=== PATIENT | female | born 1935 | race Caucasian/White ===

== ENCOUNTER 2016-09-30 06:06 | Outpatient (CLI) | payer MEDICARE, BC ==
[2016-09-27 10:56] LABS: BASOPHILS 0.3 % (0.0-2.0); EOSINOPHILS 2.9 % (0-7); HEMOGLOBIN 10.9 g/dL (12-16); IMMATURE GRANULOCYTES 0.7 % (0-5); LYMPHOCYTES 23.5 % (15-50); MCH 30.1 pg (26.0-34.0); MCHC 30.3 g/dL (31.0-37.0); MCV 99.4 fL (80.0-100.0); MEAN PLATELET VOLUME 10.7 fL (7.4-10.4); MONOCYTES 7.5 % (2-11); NEUTROPHILS 65.1 % (40-80); RBC 3.62 10x6/uL (4.00-5.40); RDW 14.8 % (11.5-14.5); WBC 7.2 10x3/uL (4.8-10.8)
[2016-09-27 11:12] LABS: ANION GAP 10.7 mmol/L (8-16); CALCIUM 9.2 mg/dL (8.5-10.1); CARBON DIOXIDE 29.1 mmol/L (21.0-32.0); CREATININE - SERUM 1.7 mg/dL (0.6-1.3); POTASSIUM - SERUM 3.8 mmol/L (3.5-5.1)
[2016-09-27 11:14] LABS: PLATELET COUNT 199 10x3/uL (130-400)
[2016-09-27 11:21] LABS: APTT 28.8 SECONDS (22.8-39.4); INR 1.05 (0.85-1.17); PROTIME 13.5 SECONDS (11.6-15.0)
[~2016-09-30] VITALS: Ht 160 cm; Wt 90.3 kg
[~2016-09-30 06:06] MED LIST: AMARYL1 MG PO; AMBIEN10 MG PO; ARTIFICIAL TEAR15 ML EACH EYE; ASPIRIN 81 MG E81 MG PO; ASPIRIN81 MG PO; CLONAZEPAM0.125 MG/T PO; CLONAZEPAM1 MG/TAB PO; COUMADIN5 MG PO; COZAAR50 MG PO; CYMBALTA60 MG PO; EFFEXOR37.5 MG PO; ELIQUIS2.5 MG PO; FLUTICASONE PRO16 GM NS; FOLIC ACID1 MG PO; GLIMEPIRIDE1 MG PO; GLUCOPHAGE1000 MG PO; HYDROCODONE-APA1 TAB PO; INDERAL 40 MG T40 MG PO; JANUVIA100 MG PO; JANUVIA50 MG PO; KLONOPIN1 MG PO; LASIX20 MG PO; LASIX40 MG PO; LIPITOR40 MG PO; MAXZIDE-25 MG T1 TAB PO; METOLAZONE5 MG PO; MIRAPEX0.5 MG PO; MULTI-DAY VITAM1 TAB PO; NEURONTIN 100100 MG PO; NITROSTAT0.4 MG SL; NORCO 7.5-3251 EACH PO; PERCOCET 10/3251 TA1 PO; PLAVIX75 MG PO; POTASSIUM CHLOR8 ME1 PO; PROCRIT/EP2000 UNITS SQ; PROCRIT/EP40000 UNIT SC; PROTONIX40 MG PO; RESTASIS EYE DR30 EA EACH EYE; RESTORIL15 MG PO; ROBAXIN-750750 MG PO; SAVELLA25 MG PO; SENOKOT-S TABLE1 TAB PO; TRICOR145 MG PO; TRILIPIX45 MG PO; VITAMIN B-1000 MCG/M IM; VITAMIN B-121000 MCG IM; ZAROXOLYN5 MG PO; ZOFRAN ODT4 MG/UDTAB PO; ZOFRAN4 MG PO
[2016-09-30 07:27] VITALS: BP 100/47; Ht 160 cm; Wt 90.3 kg
--- NOTE | 2016-09-30 07:52 | NUR ---
0730 TC TO NOHEMY IN SURGERY, REPORTED PT HAS OPEN WOUND TO RIGHT SECOND DORSAL TOE, STATES SHE WILL HAVE DR LEONARD LOOK AT IT WHEN HE IS AVAILABLE.
--- NOTE | 2016-09-30 09:26 | NUR ---
0910 DR LEONARD HERE TO ROUND ON PT AND ASSESS WOUND TO PT'T RIGHT SECOND TOE. STATES WOUND NEEDS TO BE HEALED PRIOR TO SURGERY, [facility] CANCELLED FOR TODAY, PT VERBALIZES UNDERSTANDING. DR LEONARD INSTRUCTED PT TO GO BY HIS OFFICE, THEY WILL HAVE AN OFFLOADING SHOE THERE FOR PT, PT VERBALIZES UNDERSTANDING AND STATES WILL PICK SHOE UP WHEN SHE LEAVES HOSP. 0920 SERVED PT WATER. PT HAS CALLED HER NEPHEW FOR RIDE HOME. IV DC'D WITH CATH INTACT. ASSISTED PT WITH DRESSING FOR DC TO HOME.
--- NOTE | 2016-09-30 10:09 | NUR ---
0931 DC INSTRUCTIONS HAVE BEEN REVIEWED AND PT VERBALIZES UNDERSTANDING. PT'S NEPHEW HERE TO PICK HER UP, STATES HE WILL TAKE HER BY DR LEONARD'S OFFICE TO HAND OUTSIDE CUTTER POST OP SHOE. PT ESCORTED TO PRIVATE AUTO VIA WC BY STAFF WITH NEPHEW DRIVING HER HOME.
== END 2016-09-30 23:59 | disposition home or self-care (01) ==
LOC: D.OPS 06:06 → D.PAN 08:30 → EDSTATUS 08:45 → D.PAN 08:45 → D.OPS 08:45
PROVIDERS: Anesthesiology
DX: M20.41 Other hammer toe(s) (acquired), right foot (principal); Z01.810 Encounter for preprocedural cardiovascular examination; Z01.811 Encounter for preprocedural respiratory examination; Z01.812 Encounter for preprocedural laboratory examination; Z53.9 Procedure and treatment not carried out, unspecified reason

== ENCOUNTER 2016-10-28 06:33 | Day surgery (SDC) | payer MEDICARE, BC ==
[2016-10-25 11:09] LABS: HEMATOCRIT 35.3 % (36.0-48.0); HEMOGLOBIN 10.7 g/dL (12-16); MCH 29.8 pg (26.0-34.0); MCHC 30.3 g/dL (31.0-37.0); MCV 98.3 fL (80.0-100.0); MEAN PLATELET VOLUME 10.7 fL (7.4-10.4); RBC 3.59 10x6/uL (4.00-5.40); RDW 15.5 % (11.5-14.5); WBC 7.3 10x3/uL (4.8-10.8)
[2016-10-25 11:16] LABS: ANION GAP 11.4 mmol/L (8-16); CALCIUM 8.6 mg/dL (8.5-10.1); CARBON DIOXIDE 29.6 mmol/L (21.0-32.0); CREATININE - SERUM 1.6 mg/dL (0.6-1.3)
[~2016-10-28] VITALS: Ht 160 cm; Wt 92.1 kg
[2016-10-28 07:20] VITALS: BP 130/67; Ht 160 cm; Wt 92.1 kg
== END 2016-10-28 11:00 | disposition home or self-care (01) ==
LOC: D.OPS 06:33 → D.PAN 08:30 → D.OPS 08:30
PROVIDERS: Anesthesiology
DX: M20.41 Other hammer toe(s) (acquired), right foot (principal); I25.10 Atherosclerotic heart disease of native coronary artery without angina pectoris; I12.9 Hypertensive chronic kidney disease with stage 1 through stage 4 chronic kidney disease, or unspecified chronic kidney disease; E11.22 Type 2 diabetes mellitus with diabetic chronic kidney disease; N18.9 Chronic kidney disease, unspecified

== ENCOUNTER 2016-11-19 10:27 | Inpatient (IN) | payer MEDICARE, BC ==
[~2016-11-19] VITALS: Ht 160 cm; Wt 88.2 kg
[2016-11-19 11:05] LABS: BASOPHILS 0.1 % (0.0-2.0); EOSINOPHILS 0.3 % (0-7); HEMATOCRIT 36.6 % (36.0-48.0); IMMATURE GRANULOCYTES 0.2 % (0-5); LYMPHOCYTES 17.2 % (15-50); MCH 29.1 pg (26.0-34.0); MCHC 30.1 g/dL (31.0-37.0); MCV 96.8 fL (80.0-100.0); MEAN PLATELET VOLUME 10.1 fL (7.4-10.4); MONOCYTES 13.8 % (2-11); NEUTROPHILS 68.4 % (40-80); RBC 3.78 10x6/uL (4.00-5.40); RDW 15.5 % (11.5-14.5); WBC 9.6 10x3/uL (4.8-10.8)
[2016-11-19 11:06] LABS: PLATELET COUNT 153 10x3/uL (130-400)
[2016-11-19 11:13] LABS: ALBUMIN 3.4 g/dL (3.4-5.0); ALKALINE PHOSPHATASE 48 U/L (46-116); ALT (SGPT) 29 U/L (10-68); BILIRUBIN - TOTAL 1.02 mg/dL (0.2-1.3); CALC OSMOLALITY 279 mosm/kg (275-300); CALCIUM 8.9 mg/dL (8.5-10.1); CARBON DIOXIDE 25.7 mmol/L (21.0-32.0); CHLORIDE - SERUM 103 mmol/L (98-107); CREATININE - SERUM 1.4 mg/dL (0.6-1.3); GLUCOSE 101 mg/dL (74-106); POTASSIUM - SERUM 4.2 mmol/L (3.5-5.1); PROTEIN - SERUM 7.1 g/dL (6.4-8.2); SODIUM 139 mmol/L (136-145); UREA NITROGEN 19 mg/dL (7-18); eGFR NON AFRICAN AMERICAN 38 mL/min (90-120)
[2016-11-19 11:20] LABS: PRO BNP 4468 pg/mL (0-450); TROPONIN-I < 0.017 ng/mL (0.000-0.060)
--- NOTE | 2016-11-19 14:00 | NUR ---
RECIEVED TO ROOM 2203 VIA STRETCHER FROM ER COMPLAINT OF PAIN TO RIGHT HIP S/P FALL WITH SUBSEQUENT FX TO FEMORAL NECK. IV SALINE LOCK NOTED TO LEFT WRIST. AWAKE AND ALERT ORINETED X 3 LUNGS CLAER BIALTERAL. BSA X 4 QUADS. BRUISING NOTED TO RIGHT UPPER ARM WILL MONITOR.
[2016-11-19] MEDS ORDERED: GABAPENTIN100 MG PO (14:02)
[2016-11-19] MEDS ORDERED: VITAMIN D250000 UNIT PO (14:04)
[2016-11-19] MEDS ORDERED: MOBIC7.5 MG PO (14:07)
--- NOTE | 2016-11-19 15:55 | NUR ---
PT NOTED TO HAVE RAPID HEART RATE OF 150 SUSTAINED STAT EKG ORDERED NOTED AFIB WITH RVR. WILL NOTIFY CARDIOLOGY
[2016-11-19 16:16] VITALS: BP 150/78; BMI 34.6
--- NOTE | 2016-11-19 16:26 | NUR ---
NEW ORDER RECIEVED TO TRANSFER TO PCU AND START CARDIZEM GTT AT 15 MG/HR AFTER 25 MG IV BOLUS. WILL CALL REPORT TO PCU NURSE AND TRANSFER.
[2016-11-19 17:32] LABS: MAGNESIUM - SERUM 2.1 mg/dL (1.8-2.4); THYROID STIMULATING HORMONE 0.76 uIU/mL (0.36-3.74)
--- NOTE | 2016-11-19 19:15 | NUR ---
INITIAL ROUNDS MADE. PT SITTING UP IN BED TALKING ON PHONE. NO NEEDS VERBALIZED AT THIS TIME.
[2016-11-19 21:03] VITALS: BP 119/42
[2016-11-20] VITALS (7 sets, daily range): BP systolic 94–139; BP diastolic 30–97; Ht 160 cm; Wt 88.2 kg
--- NOTE | 2016-11-20 03:55 | NUR ---
FISH FILLETER AT BEDSIDE FOR VS. NEEDS ADDRESSED, CALL LIGHT IN REACH. CONT TO MONITOR.
[2016-11-20 05:38] LABS: BASOPHILS 0.1 % (0.0-2.0); HEMATOCRIT 32.7 % (36.0-48.0); HEMOGLOBIN 9.8 g/dL (12-16); IMMATURE GRANULOCYTES 0.2 % (0-5); LYMPHOCYTES 14.6 % (15-50); MCH 28.7 pg (26.0-34.0); MCV 95.9 fL (80.0-100.0); MEAN PLATELET VOLUME 10.1 fL (7.4-10.4); MONOCYTES 12.8 % (2-11); NEUTROPHILS 69.3 % (40-80); PLATELET COUNT 170 10x3/uL (130-400); RBC 3.41 10x6/uL (4.00-5.40); RDW 15.5 % (11.5-14.5); WBC 8.7 10x3/uL (4.8-10.8)
[2016-11-20 05:49] LABS: ALBUMIN 2.7 g/dL (3.4-5.0); ANION GAP 12.7 mmol/L (8-16); BILIRUBIN - TOTAL 0.93 mg/dL (0.2-1.3); CALCIUM 8.2 mg/dL (8.5-10.1); CARBON DIOXIDE 26.1 mmol/L (21.0-32.0); CREATININE - SERUM 1.5 mg/dL (0.6-1.3); POTASSIUM - SERUM 3.8 mmol/L (3.5-5.1); PROTEIN - SERUM 6.5 g/dL (6.4-8.2)
--- NOTE | 2016-11-20 10:19 | NUR ---
TELEMETRY SR. RESP UL ON 02 3L [place]. DOMÍNGUEZ INTACT. CONSENTS SIGNED FOR SURGERY. WILL CONT. PLAN OF CARE.
--- NOTE | 2016-11-20 11:14 | NUR ---
SCD'S ON BILATERAL LE
--- NOTE | 2016-11-20 11:20 | NUR ---
BILATERAL SCDS ON.
--- NOTE | 2016-11-20 20:00 | NUR ---
RESTING IN BED. ALERT/ORIENTED. CHANGED OUT EMPTY CANAL DRIVER DILAUDID SYRINGE AT THIS TIME. IV TO LEFT HAND WITH DILAUDID CANAL DRIVER 00.4/10/4MG/4HOUR LOCKOUT. ALSO HAS NS AT [facility]. SR PER TELEMETRY. DOMÍNGUEZ PATENT TO BEDSIDE DRAIN BAG. WILL BE NPO FOR LEFT HIP SURGERY PER DR WISE IN THE AM. SEE SHIFT ASSESSMENT.
--- NOTE | 2016-11-20 22:49 | NUR ---
BEDTIME MEDS GIVEN. PT WATCHING TV AND ON HER COMPUTER. IVF INFUSING AT [facility].
[2016-11-21] VITALS: BP 107/50
[2016-11-21 04:00] VITALS: BP 107/59
[2016-11-21 06:35] LABS: BASOPHILS 0.1 % (0.0-2.0); EOSINOPHILS 3.5 % (0-7); HEMATOCRIT 30.8 % (36.0-48.0); HEMOGLOBIN 9.4 g/dL (12-16); IMMATURE GRANULOCYTES 0.3 % (0-5); LYMPHOCYTES 13.8 % (15-50); MCH 28.8 pg (26.0-34.0); MCHC 30.5 g/dL (31.0-37.0); MCV 94.5 fL (80.0-100.0); MEAN PLATELET VOLUME 10.1 fL (7.4-10.4); MONOCYTES 10.8 % (2-11); NEUTROPHILS 71.5 % (40-80); PLATELET COUNT 161 10x3/uL (130-400); RBC 3.26 10x6/uL (4.00-5.40); RDW 15.6 % (11.5-14.5); WBC 8.8 10x3/uL (4.8-10.8)
[2016-11-21 07:02] LABS: ALBUMIN 2.5 g/dL (3.4-5.0); ANION GAP 12.4 mmol/L (8-16); BILIRUBIN - TOTAL 0.8 mg/dL (0.2-1.3); CALCIUM 8.2 mg/dL (8.5-10.1); CARBON DIOXIDE 23.8 mmol/L (21.0-32.0); CREATININE - SERUM 1.5 mg/dL (0.6-1.3); POTASSIUM - SERUM 4.2 mmol/L (3.5-5.1); PROTEIN - SERUM 6.4 g/dL (6.4-8.2)
--- NOTE | 2016-11-21 07:30 | NUR ---
RECEIVED PT IN BED EYES CLOSED RESP UNLABORED SKIN W/D NAD NOTED
[2016-11-21 07:48] VITALS: BP 113/71
[2016-11-21 12:05] VITALS: BP 115/54
--- NOTE | 2016-11-21 13:30 | NUR ---
PT TO OR VIA BED IN STABLE CONDITION
--- NOTE | 2016-11-21 16:55 | NUR ---
ATTEMPTED TO CALL REPORT, STAFF UNABLE TO FIND NURSE ASSIGNED TO THIS PT.
--- NOTE | 2016-11-21 18:00 | NUR ---
RECEIVED PT BACK TO ROOM FROM RECOVERY IN STABLE CONDITION RT HIP WITH DRSG INTACT AND ICE PACK APPLIED PT DENIES ANY NEEDS AT THIS TIME
[2016-11-21 20:00] VITALS: BP 137/64
--- NOTE | 2016-11-21 21:10 | NUR ---
PT C/O EXTENSIVE HIP PAIN AND IS CONTINUOSLY PUSHING HER DILAUDID GENERAL PRACTITIONER BUTTON SAYING IT IS NOT HELPING. PT SAYS THAT SHE ASKED DR WISE TO GIVE HER A "BLOCK" THAT WOULD LAST A "FEW DAYS" BECAUSE SHE DOES NOT WANT TO HURT. EXPLAINED TO PT THAT GENERALLY POST SURGERY, MOBILITY IS A PRIORITY. PT SAYING DR WISE WOULD DO IT IF HE KNEW SHE WANTED IT. REVIEWED PT'S MEDS AND AGREED TO GIVE HER A PERCOCETT FOR BREAKTHROUGH PAIN + HER NORMAL NIGHT MEDS WHICH INCLUDES SLEEPING PILLS. PT AGREEABLE TO THIS ARRANGEMENT. LEFT HIP DRESSING IS C/D/I WITH ICE PACK INPLACE. GOOD PEDAL PULSES. IV NS @ [facility] TO RIGHT AND WELL THE DILAUDID GENERAL PRACTITIONER. WILL MONITOR. CALL LIGHT IN REACH.
[2016-11-22] VITALS: BP 121/49
[2016-11-22 04:00] VITALS: BP 108/40
[2016-11-22 05:45] LABS: BASOPHILS 0.1 % (0.0-2.0); EOSINOPHILS 2.6 % (0-7); HEMATOCRIT 32.1 % (36.0-48.0); HEMOGLOBIN 9.7 g/dL (12-16); IMMATURE GRANULOCYTES 0.3 % (0-5); MCH 28.6 pg (26.0-34.0); MCHC 30.2 g/dL (31.0-37.0); MCV 94.7 fL (80.0-100.0); MEAN PLATELET VOLUME 10.4 fL (7.4-10.4); MONOCYTES 10.9 % (2-11); NEUTROPHILS 72.1 % (40-80); RBC 3.39 10x6/uL (4.00-5.40); RDW 15.3 % (11.5-14.5)
[2016-11-22 05:46] LABS: PLATELET COUNT 208 10x3/uL (130-400)
[2016-11-22 05:58] LABS: ALBUMIN 2.4 g/dL (3.4-5.0); ANION GAP 12.4 mmol/L (8-16); BILIRUBIN - TOTAL 0.9 mg/dL (0.2-1.3); CALCIUM 8.5 mg/dL (8.5-10.1); CARBON DIOXIDE 25.9 mmol/L (21.0-32.0); CREATININE - SERUM 1.4 mg/dL (0.6-1.3); POTASSIUM - SERUM 4.3 mmol/L (3.5-5.1); PROTEIN - SERUM 6.4 g/dL (6.4-8.2)
--- NOTE | 2016-11-22 07:30 | NUR ---
RESTING QUIETLY EYES CLOSED RESP UNLABORED NAD NOTED
[2016-11-22 08:56] VITALS: BP 122/51
--- NOTE | 2016-11-22 11:15 | NUR ---
Patient Name: CHRISTINA FOOTE Admission Status: ER Accout number: [id number] Admission Date: 11-19-2016 : 1935 Admission Diagnosis:FRACTURE OF UNSP PART OF NECK OF RIGHT FEMUR, INIT Attending: VANCE Current LOS: 3 Anticipated DC Date: 11-22-2016 Planned Disposition: Penitentiary Facility Primary Insurance: MEDICARE A & B Discharge Planning Comments: CM MET WITH PATIENT TO DISCUSS DISCHARGE PLANNING/NEEDS. THE PATIENT STATES SHE RESIDES ALONE AT HOME AND HAS 4 STEPS AND A WHEELCHAIR RAMP TO HER BACK DOOR WELL 7 STEPS TO THE FRONT DOOR. SHE STATES "I HAVE NOBODY" TO ACT CAREGIVER AFTER DISCHARGE. THE PATIENT REQUESTS TO DISCHARGE TO [facility]. CM EDUCATED PATIENT ON MORIAH-MORIAH SIGNED AND PLACED ON CHART. CM SPOKE WITH "DAMON" AT [facility] ([phone]) AND REFERRAL FAXED PER ELINA. THE PATIENT STATES SHE HAS HOME OXYGEN THAT SHE USES NEEDED BUT IS UNABLE TO REMEMBER DME COMPANY AT THIS TIME. HER PCP IS DR. VO AND HER PHARMACY IS [facility] ([address] CM WILL CONTINUE TO FOLLOW AND ASSIST NEEDED. Company Laundry Worker: Tari Jones RN/CM * [facility] Seat Oxygen Shower Chair Walker 0 * List name and contact numbers for known caregivers / representatives who currently or will assist patient after discharge: PATIENT STATES "I HAVE NOBODY'. (Chart lists patient's son "Av Todd" ([phone]) -pt states he resides in [place]. Additional "Ernestina Rodriguez" (dtr) ([phone]) who resides in [place]. 0 * Community resources currently utilized None 0 * Please name any agencies selected above. Patient unable to remember which DME supplier for home oxygen. 0 * Additional services required to return to the preadmission environment? Yes 0 * Can the patient safely return to the preadmission environment? No 0 * Has this patient been hospitalized within the prior 30 days at any hospital? No 0 Grand Total: 0 patient Alert and Oriented? Yes 0 * How many steps to enter\\exit or inside your home? 4 0 * Preadmission Environment Home Alone 0 * ADLs Partial Dependent 0 * Partial ADLs (Assistance needed) Ambulation 0 * Equipment Bedside Commode Cane
[2016-11-22 12:00] VITALS: BP 109/48
--- NOTE | 2016-11-22 12:13 | NUR ---
FSBS 136
--- NOTE | 2016-11-22 16:01 | NUR ---
FSBS 131
[2016-11-22 17:41] VITALS: BP 132/57
--- NOTE | 2016-11-22 21:30 | NUR ---
ATTEMPT TO REMOVE DOMÍNGUEZ FROM PT, PT REFUSES TO LET DOMÍNGUEZ CATH BE REMOVED UNTIL SHE CAN SPEAK WITH DR WISE. PT STATES SHE IS NOT ABLE TO MOVE HER RIGHT LEG. EXPLAINED TO PT IT WAS IMPORTANT TO START TRYING TO USE ROM AND LETTING STAFF ASSIST IN HER MOVING. PT STATED "I NEED TO TALK TO DR WISE". COMPLIED WITH PT WISHES AT THIS TIME.
[2016-11-22 21:31] VITALS: BP 110/52
[2016-11-23 05:27] LABS: BASOPHILS 0.2 % (0.0-2.0); HEMOGLOBIN 8.3 g/dL (12-16); IMMATURE GRANULOCYTES 0.5 % (0-5); LYMPHOCYTES 12.3 % (15-50); MCH 28.2 pg (26.0-34.0); MCHC 29.6 g/dL (31.0-37.0); MCV 95.2 fL (80.0-100.0); MEAN PLATELET VOLUME 10.2 fL (7.4-10.4); MONOCYTES 9.5 % (2-11); NEUTROPHILS 75.5 % (40-80); PLATELET COUNT 242 10x3/uL (130-400); RBC 2.94 10x6/uL (4.00-5.40); RDW 15.6 % (11.5-14.5); WBC 9.6 10x3/uL (4.8-10.8)
[2016-11-23 05:46] LABS: ALBUMIN 2.2 g/dL (3.4-5.0); ANION GAP 12.4 mmol/L (8-16); CALCIUM 8.6 mg/dL (8.5-10.1); CARBON DIOXIDE 25.9 mmol/L (21.0-32.0); CREATININE - SERUM 1.4 mg/dL (0.6-1.3); POTASSIUM - SERUM 4.3 mmol/L (3.5-5.1); PROTEIN - SERUM 6.4 g/dL (6.4-8.2)
[2016-11-23 05:53] VITALS: BP 143/41
--- NOTE | 2016-11-23 07:56 | NUR ---
AWAKE AND ALERT THIS AM. GOING OVER GOALS FOR TODAY WITH PATIENT. GOALS ARE TO GET UP WITH MEALS. PATIENT DOES NOT WANT TO DO ANYTHING UNTIL SHE SPEAKS WITH DR. WISE. MONITOR SHOWS SR@ 77.
[2016-11-23 09:19] VITALS: BP 134/52
--- NOTE | 2016-11-23 10:43 | NUR ---
VISITED PATIENT EARLIER. HE WENT OVER PAIN CONTROL , GETTING UP IN CHAIR AND DOMÍNGUEZ REMOVAL WITH PATIENT. AT THIS TIME, PATIENT IS UP IN CHAIR BY PT.
[2016-11-23 12:01] LABS: % SATURATION 6 % (15-55); IRON 13 ug/dl (35-150); TOTAL IRON BIND CAPACITY 194 ug/dl (260-445); UNSAT IRON BIND CAPACITY 181 ug/dl (150-375)
[2016-11-23 12:21] VITALS: BP 130/53
[2016-11-23 15:49] VITALS: BP 122/50
--- NOTE | 2016-11-23 17:54 | NUR ---
PT IS ALERT. ASSESSMENT DONE PER FLOWSHEET. NO OTHER NEEDS AT THIS TIME. WILL CONTINUE TO MONITOR.
--- NOTE | 2016-11-23 18:09 | NUR ---
DOMÍNGUEZ AND SNUFF GRINDER AND SCREENER DC PER EARLIER ORDER. PATIENT CO NAUSEA AND PAIN AND MEDICATED ACCORDINGLY.
[2016-11-23 21:37] VITALS: BP 113/50
[2016-11-24 00:30] VITALS: BP 132/60
[2016-11-24 04:30] VITALS: BP 123/51
[2016-11-24 06:31] LABS: BASOPHILS 0.2 % (0.0-2.0); EOSINOPHILS 2.2 % (0-7); HEMATOCRIT 25.8 % (36.0-48.0); HEMOGLOBIN 7.8 g/dL (12-16); IMMATURE GRANULOCYTES 0.9 % (0-5); LYMPHOCYTES 10.7 % (15-50); MCH 28.4 pg (26.0-34.0); MCHC 30.2 g/dL (31.0-37.0); MCV 93.8 fL (80.0-100.0); MEAN PLATELET VOLUME 10.2 fL (7.4-10.4); MONOCYTES 9.4 % (2-11); NEUTROPHILS 76.6 % (40-80); PLATELET COUNT 271 10x3/uL (130-400); RBC 2.75 10x6/uL (4.00-5.40); RDW 15.7 % (11.5-14.5); WBC 9.1 10x3/uL (4.8-10.8)
[2016-11-24 06:37] LABS: ALBUMIN 2.2 g/dL (3.4-5.0); ANION GAP 12.9 mmol/L (8-16); BILIRUBIN - TOTAL 1.3 mg/dL (0.2-1.3); CALCIUM 8.5 mg/dL (8.5-10.1); CARBON DIOXIDE 25.6 mmol/L (21.0-32.0); CREATININE - SERUM 1.3 mg/dL (0.6-1.3); POTASSIUM - SERUM 4.5 mmol/L (3.5-5.1); PROTEIN - SERUM 5.9 g/dL (6.4-8.2)
--- NOTE | 2016-11-24 07:26 | NUR ---
PT SITTING UP IN BED SLEEPING NO S/S DISTRESS NOTED WILL CONT TO MONITOR.
[2016-11-24 08:11] LABS: MAGNESIUM - SERUM 2.2 mg/dL (1.8-2.4); PHOSPHOROUS 3.3 mg/dL (2.5-4.9)
[2016-11-24 08:59] VITALS: BP 98/58
--- NOTE | 2016-11-24 09:21 | NUR ---
CALLED PHARM TO BRING UP PT MEDICATION
--- NOTE | 2016-11-24 10:15 | NUR ---
CALLED PHARM AND ASKED THEM TO BRING UP MEDICATIONS
--- NOTE | 2016-11-24 10:52 | NUR ---
STILL NO EPOGEN AND IRON CALLED PHARM AGAIN.
--- NOTE | 2016-11-24 11:25 | NUR ---
STILL NO MEDS FROM PHARM..
[2016-11-24 12:14] VITALS: BP 116/57
--- NOTE | 2016-11-24 14:49 | NUR ---
REPORT REC'D FROM SAUMYA SYED. ROOM READY AND AWAITING PT ARRIVAL.
--- NOTE | 2016-11-24 15:13 | NUR ---
PT REC'D. AAOX4. RATING CURRENT PAIN IN R HIP 02/15. TACHYCARDIC. LUNG SOUNDS CLEAR AND EQUAL BILAT. BOWEL SOUNDS ACTIVE X4 QUADRANTS. DRESSING TO R HIP CLEAN DRY AND INTACT. SCD'S ON. +2 PEDAL PULSES BILAT. BED LOW, CALL LIGHT IN REACH, DENIES NEEDS. CPOC.
[2016-11-24 16:02] VITALS: BP 112/61
[2016-11-24 19:00] VITALS: BP 124/56
--- NOTE | 2016-11-24 20:00 | NUR ---
ASSESSMENT PER FLOWSHEET. DRESSING TO RT HIP INCISION C/D/I. PPP+ SR UP X2 CALL LIGHT WITHIN REACH SALINE LOCK PATENT LEFT HAND. HOB UP 30 DEGREES.
--- NOTE | 2016-11-24 20:15 | NUR ---
UP WITH HELP TO BSC VOIDS WELL ASSISTED BACK TO BED.
--- NOTE | 2016-11-24 21:30 | NUR ---
MEDS GIVEN PER MAR. NZHM=[id number] NO COVERAGE NEEDED.
--- NOTE | 2016-11-24 23:30 | NUR ---
ASSISTED UP TO BS COMMODE WITH HELP OF 2 PEOPLE. PT VOIDS. ASSISTED BACK TO BED SR UP X2 CALL LIGHT WITHIN REACH SCD'S WERE ON.
[2016-11-25] VITALS: BP 127/50
--- NOTE | 2016-11-25 02:43 | NUR ---
EYES CLOSED RESPIRATIONS WITH EASE AND UNLABORED.
--- NOTE | 2016-11-25 03:04 | NUR ---
C/O PAIN INCISIONAL AREA. RATES PAIN LEVEL #6. PERCOCET TAB ONE PO GIVEN FOR PAIN CONTROL.
[2016-11-25 04:00] VITALS: BP 124/52
[2016-11-25 07:56] LABS: PHOSPHOROUS 3.1 mg/dL (2.5-4.9); POTASSIUM - SERUM 3.9 mmol/L (3.5-5.1)
[2016-11-25 08:12] VITALS: BP 127/54
--- NOTE | 2016-11-25 08:15 | NUR ---
PT SEEN AND ASSESSED. DRESSING NOTED TO RIGHT HIP-CLEAN DRY AND INTACT. PULSE REGULAR. CHIEF PSYCHOLOGIST STATES MONITOR SHOWS SR 80. NO COMPLAINTS AT PRESENT. CALL LIGHT IN REACH. BED ALARM ON
--- NOTE | 2016-11-25 10:10 | NUR ---
11/25/2016 10:08 DCP: Discharge Planning POC discussed with Dr. Ortega. Anticipate dc later this afternoon. Patient requests [facility] for skilled re[facility]. MORIAH signed. Referral faxed and called to [facility]. Waiting determination. CM will follow.
[2016-11-25] MEDS ORDERED: HYDROCODONE-APA1 TAB PO (11:29)
[2016-11-25] MEDS ORDERED: ELIQUIS2.5 MG PO (11:30)
[2016-11-25 11:53] LABS: BASOPHILS 0.3 % (0.0-2.0); EOSINOPHILS 3.3 % (0-7); HEMATOCRIT 27.8 % (36.0-48.0); HEMOGLOBIN 8.2 g/dL (12-16); IMMATURE GRANULOCYTES 2.1 % (0-5); LYMPHOCYTES 13.4 % (15-50); MCH 28.2 pg (26.0-34.0); MCHC 29.5 g/dL (31.0-37.0); MCV 95.5 fL (80.0-100.0); MEAN PLATELET VOLUME 10.1 fL (7.4-10.4); MONOCYTES 9.3 % (2-11); NEUTROPHILS 71.6 % (40-80); PLATELET COUNT 322 10x3/uL (130-400); RBC 2.91 10x6/uL (4.00-5.40); RDW 15.8 % (11.5-14.5); WBC 7.2 10x3/uL (4.8-10.8)
[2016-11-25 12:04] VITALS: BP 117/54
[2016-11-25 12:04] LABS: ANION GAP 11.7 mmol/L (8-16); CALCIUM 9.1 mg/dL (8.5-10.1); CARBON DIOXIDE 25.3 mmol/L (21.0-32.0)
--- NOTE | 2016-11-25 12:22 | NUR ---
DR TALAVERA FROM [facility] CALLED. CONFIRMED NO FRACTURE NOTED TO PELVIS
--- NOTE | 2016-11-25 13:00 | NUR ---
11/25/2016 12:58 DCP: Discharge Planning Rec'd call from [facility] with [facility]. Patient has been accepted & will transfer today to a longterm bed via facility van. supervising floorperson time approx. 1430. Nursing to call report to [phone]. Med Rec & DC instructions faxed.
--- NOTE | 2016-11-25 13:04 | NUR ---
REPORT CALLED TO CLAYTON AT [facility]. WILL BRADDER AROUND 1430 PER VAN.
[2016-11-26 09:17] LABS: FOLATE (FOLIC ACID) - SERUM 3.2 ng/mL (>3.0)
--- NOTE | 2016-12-03 14:37 | CN ---
PATIENT NAME:CHRISTINA FOOTE FEBRUARY MEDICAL RECORD: [id number] : 39 LOCATION:D.MS [id number] ADMIT DATE: 11/19/16 ACCOUNT: [id number] CONSULTING PHYSICIAN: NAYA MENDEZ MD REFERRING PHYSICIAN: CHRISTIAN WISE MD DATE OF CONSULTATION: 11/19/2016 Cardiology Consultation DIAGNOSES: 1. Atrial fibrillation with rapid ventricular response. 1. Status post hip fracture. 2. Mitral regurgitation. 3. Coronary artery disease. HISTORY OF PRESENT ILLNESS: Mrs. Foote presents with hip fracture, went into atrial fibrillation with rapid response. She received IV Cardizem 25 mg bolus and 15 mg an hour drip and has converted to sinus rhythm. She does not have a history of atrial fibrillation. She does have a history of hypertension, for which she is on propranolol 80 mg b.i.d.; hyperlipidemia for which she is on atorvastatin, coronary artery disease in the distant past, no angina with the atrial fibrillation, no acute ST-T changes with the atrial fibrillation. PHYSICAL EXAMINATION: GENERAL APPEARANCE: Well-nourished, well-developed, appears stated age. Level of distress, comfortable. PSYCHIATRIC: Mental status, alert, normal affect. Orientation, oriented to time, place and person. EYES: Lids and conjunctiva, noninjected. No discharge, no pallor. ENT: Lips, teeth, gums, normal dentition. Oropharynx, no cyanosis, no pallor. NECK: Carotid arteries, bilateral normal upstroke, no bruits, no thrills. JUGULAR VEINS: No jugular venous pressure or distention. CERVICAL LYMPH NODES: Nontender, nonenlarged. THYROID: Not enlarged. Nontender. No nodules. LUNGS: Respiratory effort, unlabored. CHEST: Normal curvature. No thoracic deformity. No chest wall tenderness. Percussion, resonant. Auscultation, clear. No wheezes, no rales, no rhonchi. CARDIOVASCULAR: Precordial exam, nondisplaced. No heaves or pericardial thrills. Rate and rhythm, regular. Heart sounds, normal S1, normal S2. No S3, no gallop, no rub. Systolic murmur, not heard. Diastolic murmur, not heard. EXTREMITIES: No cyanosis, no edema. Peripheral pulses, full and equal in all extremities, except as noted. No bruits appreciated. ABDOMEN: Soft, nondistended. Normal aorta. No bruit. Nontender. No masses. Liver, nontender, no hepatomegaly. Spleen, nontender, no splenomegaly. MUSCULOSKELETAL: No joint tenderness. No joint swelling. No erythema. NEUROLOGICAL: Normal gait, normal strength, normal tone. SKIN: Warm and dry. REVIEW OF SYSTEMS: The patient reports easy bruising but reports no swollen glands. The patient reports no fever, no night sweats, no significant weight gain, no significant weight loss. No significant exercise tolerance. The patient reports no dry eyes, no irritation, no vision change. Patient reports no difficulty hearing and no ear pain. Patient reports no frequent nose bleeds or nose and sinus problems. Patient reports on arm pain on exertion. No shortness of breath while lying down. No history of heart murmur. Patient CONSULT REPORT [id number] CHRISTINA FOOTE FEBRUARY reports no cough, no wheezing or coughing up blood. Patient reports no abdominal pain, no vomiting. Normal appetite. No diarrhea and not vomiting blood. No nausea and no constipation. Patient reports no incontinence. No difficulty urinating. No hematuria. No increased frequency. Patient reports no muscle aches. No weakness, no arthralgias, no back pain. No swelling of the extremities. Patient reports no abnormal mole, no jaundice, no rashes. Reports no loss of consciousness. No weakness and no numbness. No seizures, dizziness, or headaches. The patient reports no depression, no sleep disturbance, feeling safe in a relationship and no alcohol abuse. Patient reports on fatigue. Reports no runny nose or sinus pressure. No itching, no hives, and no frequent sneezing. OVERALL IMPRESSION: Her systolic blood pressures in the 150s. At this time, we will continue the Cardizem changing her to p.o. 240 q. day in addition to her propranolol. If she goes back into atrial fibrillation, we will consider changing the propranolol to sotalol. At this time, no other cardiac workup or treatment is necessary. TRANSINT:[id number] Voice Confirmation ID: [id number] DOCUMENT ID: [id number] NAYA MENDEZ MD at 1437 CC: [id number] DICTATION DATE: 11/19/161923 QUALITY ASSURANCE SUPERVISOR FINAL: 11/19/162039 DIS IN 11/25/16 [facility] [address] [place] [address]
== END 2016-11-25 14:39 | DRG 470 ==
LOC: D.ER 10:27 → D.M2 12:36 → D.MS 12:36 → D.M2 17:01 → D.MS 11-24 15:06
PROVIDERS: Family Medicine; Internal Medicine; Internal Medicine Nephrology; ADMIT Orthopaedic Surgery
PROC: 0SRR0JZ Replacement of Right Hip Joint, Femoral Surface with Synthetic Substitute, Open Approach (ICD-10-PCS; principal; 2016-11-21 13:45)
DX: S72.001A Fracture of unspecified part of neck of right femur, initial encounter for closed fracture (principal); D62 Acute posthemorrhagic anemia; W19.XXXA Unspecified fall, initial encounter; I48.91 Unspecified atrial fibrillation; I34.0 Nonrheumatic mitral (valve) insufficiency; I25.10 Atherosclerotic heart disease of native coronary artery without angina pectoris; E11.22 Type 2 diabetes mellitus with diabetic chronic kidney disease; I12.9 Hypertensive chronic kidney disease with stage 1 through stage 4 chronic kidney disease, or unspecified chronic kidney disease; N18.3 Chronic kidney disease, stage 3 (moderate); E11.21 Type 2 diabetes mellitus with diabetic nephropathy; E11.40 Type 2 diabetes mellitus with diabetic neuropathy, unspecified; E78.5 Hyperlipidemia, unspecified; H91.90 Unspecified hearing loss, unspecified ear; Z95.5 Presence of coronary angioplasty implant and graft; Z86.73 Personal history of transient ischemic attack (TIA), and cerebral infarction without residual deficits; Z87.891 Personal history of nicotine dependence